=== PATIENT | male | born 1955 | race Caucasian/White ===

== ENCOUNTER 2017-10-09 01:25 | Emergency (ER) | payer SELFPAY ==
[~2017-10-09] VITALS: Ht 162.6 cm; Wt 77.0 kg
[2017-10-09 01:25] VITALS: BP 110/70
== END 2017-10-09 02:47 | disposition left against medical advice (07) ==
LOC: ER 01:25
DX: M25.572 Pain in left ankle and joints of left foot (principal); Z53.21 Procedure and treatment not carried out due to patient leaving prior to being seen by health care provider